=== PATIENT | female | born 1985 | race Caucasian/White ===

== ENCOUNTER 2018-07-14 21:10 | Emergency (ER) | payer BC ==
[2018-07-14] MEDS ORDERED: Diphtheria,Pertussis(Acell),Tetanus Vaccine 0.5 ML SDV IM ONE (21:26)
[2018-07-14] MEDS ORDERED: Lidocaine 1% with EPINEPHrine 1:100,000 20 ML MDV INJECT ONE (22:10)
--- NOTE | 2018-07-14 23:41 | EDM.PDOC ---
ED HPI GENERAL MEDICAL PROBLEM - General Chief Complaint: Head Injury Stated Complaint: FALL Time Seen by Provider: 07/14/18 21:24 Source of Information: Reports: Patient, Family - History of Present Illness INITIAL COMMENTS - FREE TEXT/NARRATIVE: Events documented in dictation. 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 MODERN DANCER History: "vaginal surgery" - Past Surgical History Female Surgical History: Reports: Tubal Ligation Social & Family History - Tobacco Use Smoking Status *Q: Never Smoker - Recreational Drug Use Recreational Drug Use: No ED ROS GENERAL - Review of Systems Review Of Systems: See Below Constitutional: Reports: No Symptoms HEENT: Reports: No Symptoms Respiratory: Reports: No Symptoms Cardiovascular: Reports: No Symptoms Endocrine: Reports: No Symptoms GI/Abdominal: Reports: No Symptoms : Reports: No Symptoms Musculoskeletal: Reports: No Symptoms Skin: Reports: No Symptoms Neurological: Reports: No Symptoms Psychiatric: Reports: No Symptoms Hematologic/Lymphatic: Reports: No Symptoms Immunologic: Reports: No Symptoms ED EXAM, HEAD INJURY - Physical Exam Exam: See Below Course - Vital Signs Last Recorded V/S: Last Vital Signs Temp 36.6 C 07/14/18 21:14 Pulse 82 07/14/18 21:14 Resp 18 07/14/18 21:14 BP 128/96 H 07/14/18 21:14 Pulse Ox 99 07/14/18 21:14 - Orders/Labs/Meds Orders: Active Orders 24 hr Category Date Time Status Vaccines to be Administered [RC] PER UNIT ROUTINE Care 07/14/18 21:26 Active Femur Min 2V Rt [CR] Stat Exams 07/14/18 21:17 Taken Meds: Medications Discontinued Medications Generic Name Dose Route Start Last Admin Trade Name Freq PRN Reason Stop Dose Admin Diphtheria/Tetanus/Acell Pertussis 0.5 ml 07/14/18 21:26 07/14/18 21:52 Adacel IM 07/14/18 21:27 0.5 ml .ONCE ONE Administration Lidocaine/Epinephrine 20 ml 07/14/18 22:10 07/14/18 22:40 Xylocaine 1% With Epinephrine 1:100,000 INJECT 07/14/18 22:11 10 ml ONETIME ONE Administration Departure - Departure Time of Disposition: 23:38 Disposition: Home, Self-Care 01 Condition: Good Clinical Impression: Concussion with no loss of consciousness Scalp laceration Qualifiers: Encounter type: initial encounter Qualified Code(s): S01.01XA - Laceration without foreign body of scalp, initial encounter Contusion Qualifiers: Encounter type: initial encounter Contusion area: thigh Laterality: right Qualified Code(s): S70.11XA - Contusion of right thigh, initial encounter - Discharge Information Instructions: Head Injury, Adult, Laceration Care, Adult Referrals: PCP,None [Primary Care Provider] - Additional Instructions: Instructions regarding head injury on sheet. [place] to be removed in 5-7 days. - My Orders Last 24 Hours: My Active Orders 07/14/18 21:17 Femur Min 2V Rt [CR] Stat 07/14/18 21:26 Vaccines to be Administered [RC] PER UNIT ROUTINE - Assessment/Plan Last 24 Hours: My Active Orders 07/14/18 21:17 Femur Min 2V Rt [CR] Stat 07/14/18 21:26 Vaccines to be Administered [RC] PER UNIT ROUTINE
--- NOTE | 2018-07-15 01:55 | ER ---
REASON FOR EMERGENCY ROOM VISIT: Fell off horse with scalp laceration. HISTORY OF PRESENT ILLNESS: This 32-year-old woman was riding horseback with her this evening, and they were galloping when the horse suddenly threw a mena at her and threw her off. She landed on her feet, but then fell backwards and struck her head, which caused a laceration to her occipital scalp area. Also, her is not certain about this, but he thinks that she was either kicked or stepped on in her right lower thigh area. She cannot recollect events for approximately 3 minutes following the incident. She is not certain whether or not she lost consciousness, her thinks she may have for a few seconds. She has no retrograde amnesia and remembers everything including when she was actually bucked off her horse. She denies any visual symptoms at this time. She has some pain over the laceration, but no real headache. She denies any numbness or weakness. She has had no nausea or vomiting. PAST MEDICAL HISTORY: 1. Varicose vein surgery. 2. Tubal ligation. 3. Vaginal surgery. 4. Asthma. CURRENT MEDICATIONS: Albuterol p.r.n. HABITS: She is a nonsmoker and rarely drinks alcohol. Denies any use of illicit drugs. REVIEW OF SYSTEMS: Pertinent positives and negatives as listed in the HPI. PHYSICAL EXAMINATION: GENERAL: Reveals a pleasant woman, who is somewhat anxious, but otherwise in no acute distress. VITAL SIGNS: She is afebrile, heart rate is 82, blood pressure 128/96, respiratory rate is 18, O2 saturations 99%. HEENT: She has a 2 cm slightly L-shaped laceration of her occipital scalp area. Once the area was anesthetized with lidocaine, I probed and could not feel any bony fragments. It only goes into the subcutaneous tissue. TMs are normal with no hemotympanum. Pupils equally round and reactive to light. Mouth, normal occlusion. No facial bone tenderness. NECK: Supple. No tenderness. Normal passive range of motion including flexion, extension, and rotation. CHEST: No external evidence of trauma. No tenderness to palpation. Clear to auscultation with good breath sounds bilaterally. CARDIAC: Regular rate without murmur. ABDOMEN: Nondistended, soft, and nontender. No external evidence of trauma. PELVIS: Nontender to compression. EXTREMITIES: Upper extremities are normal with no external evidence of trauma. Normal pulses. Good perfusion. Lower extremities similarly normal range of motion, but she does have a contusion in the shape of a horseshoe on her right lower inner thigh. This is somewhat tender and very mild superficial abrasion in the area. FURTHER EMERGENCY ROOM COURSE: She was uncertain as to her tetanus status, so she was given a tetanus booster. The laceration was cleansed with Hibiclens and water and local anesthesia was achieved with 1% Xylocaine with epinephrine. Skin edges were approximated with chucky over which antibiotic ointment was applied liberally. Shortly after this, she had a vasovagal period where she became bradycardic into the 40s and the blood pressure dipped down into the 60s very briefly, but she recovered from this. She did have lightheadedness and maybe some slight nausea, but it all promptly resolved within a matter of minutes. She was observed for approximately an hour after this and was fine. She had an x-ray of her distal femur and knee area and there was no evidence of fracture or dislocation. IMPRESSION: 1. Mild head injury with laceration as described above. 2. Soft tissue injury, right lower thigh. PLAN: She and her were given instruction sheet regarding things to look out for in the case of head injury. I told her to abstain from internet, reading, and television at least overnight and see how she feels tomorrow. She was instructed regarding care of her laceration and her soft tissue contusion. All questions were answered, they understand and agree. MMMAGDALENE /[id number]
== END 2018-07-14 23:50 | disposition home or self-care (01) ==
LOC: JD.ED 21:10
DX: S06.0X0A Concussion without loss of consciousness, initial encounter (principal); S01.01XA Laceration without foreign body of scalp, initial encounter; S70.11XA Contusion of right thigh, initial encounter; J45.909 Unspecified asthma, uncomplicated; V80.010A Animal-rider injured by fall from or being thrown from horse in noncollision accident, initial encounter; Z23 Encounter for immunization
CPT/HCPCS: 12001; 73552-RT; 90471; 90715; 99283-25; 99284-25